=== PATIENT | male | born 1985 | race Caucasian/White ===

== ENCOUNTER 2024-10-17 19:35 | Emergency (ER) | payer SELFPAY ==
[~2024-10-17] VITALS: Ht 167.6 cm; Wt 82.0 kg
[2024-10-17 19:37] VITALS: BP 116/82; PULSE 73; RESP 16; TEMP 36.4; O2SAT 97
[2024-10-17] MEDS: ONDANSETRON 4MG ODT PO ONE (20:06)
== END 2024-10-18 00:40 | disposition home or self-care (01) ==
LOC: ER 19:35
DX: F10.129 Alcohol abuse with intoxication, unspecified (principal); F17.200 Nicotine dependence, unspecified, uncomplicated; Y90.9 Presence of alcohol in blood, level not specified
CPT/HCPCS: 99283; Q0162